=== PATIENT | female | born 1955 | race Caucasian/White ===

== ENCOUNTER 2017-10-10 21:59 | Emergency (ER) | payer MEDICAID ==
[2017-10-13 18:23] VITALS: BMI 33.5
== END 2017-10-10 23:50 | disposition home or self-care (01) ==
LOC: D.ER 21:59
DX: J20.9 Acute bronchitis, unspecified (principal); F17.200 Nicotine dependence, unspecified, uncomplicated

== ENCOUNTER 2017-10-11 08:28 | Inpatient (IN) | payer MEDICAID ==
[~2017-10-11] VITALS: Ht 172.7 cm; Wt 103.4 kg
--- NOTE | ~2017-10-11 | EC ---
PATIENT:NESS ROJO DATE OF SERVICE: 10/11/17 SEX: F MEDICAL RECORD: [id number] DATE OF : 53 LOCATION:[facility] AGE OF PATIENT: 62 ADMISSION DATE: 10/11/17 REFERRING PHYSICIAN: INTERPRETING PHYSICIAN: OLGA WEBSTER MD ECHOCARDIOGRAM REPORT ECHO CHARGES 4 ECHO COMPLETE Date: 10/13 CLINICAL DIAGNOSIS: EVALUATE FUNCTION ECHOCARDIOGRAPHIC MEASUREMENTS (adult normal given) AC root (d.<3.7cm) 3.2 cm LV Septum d (<1.2 cm> 1.4 cm Valve Excursion 1.5 cm LV Septum (systole) 1.9 cm Left Atria (s.<4.0cm> 3.5 cm LVPW d(<1.2cm) 1.1 cm RV (d.<2.3cm) 2.4 cm LVPW (sytole) 2.0 cm LV diastole(<5.6CM) 4.9 cm MV E-F(>70mm/sec) cm LV systole 2.6 cm LVOT Diameter 1.9 cm MV exc.(>10mm) cm Est.ejection fraction (50-75%) % DOPPLER: LVIT cm/sec A 79.0 cm/sec E 108 cm/sec LA cm/sec RVSP 41.4 mmHg LVOT 163 cm/sec AOP1/2T m/s Asc. Ao 218 cm/sec RVOT 104 cm/sec RA cm/sec PA 143 cm/sec AV Gradient Peak 19.0 mmHg AV Mean 9.0 mmHg AV Area 1.6 cm MV Gradient Peak 7.2 mmHg MV Mean 3.2 mmHg MV Area cm COMMENTS: Pin Drafter Operator: 1 KINSEY DUPREEOE Rn Pacu: 2 Dr. Fulton TAPE# PACS Pericardial Effusion N DATE OF SERVICE: FINDINGS: 1. Left ventricular chamber size is within normal limits. Left ventricular systolic function is normal. Overall ejection fraction is estimated at 65%. 2. Left atrium, right atrium, and right ventricular chamber sizes are within normal limit. 3. Valvular structures have normal structure and motion. 4. Doppler interrogation reveals mild mitral regurgitation. No other valvular insufficiency or stenosis. Pulmonary systolic pressure is estimated at 41 mmHg. ECHOCARDIOGRAM REPORT [id number] NESS ROJO 5. No evidence of pericardial effusion or left ventricular thrombus. TRANSINT:[id number] Voice Confirmation ID: [id number] DOCUMENT ID: [id number] OLGA WEBSTER MD at 1056 CC: [id number] DICTATION DATE: 10/13/17 1621 ECHO TECHNOLOGIST: 10/14/17 0127 DIS IN 10/15/17 [id number] [place] [address]
[2017-10-11 09:10] LABS: BASOPHILS 0.3 % (0-2); EOSINOPHILS 3.2 % (0-7); HEMATOCRIT 36.2 % (36.0-48.0); HEMOGLOBIN 11.9 g/dL (12-16); IMMATURE GRANULOCYTES 0.3 % (0-5); LYMPHOCYTES 5.6 % (15-50); MCH 27.8 pg (26.0-34.0); MCHC 32.9 g/dL (31.0-37.0); MCV 84.6 fL (80.0-100.0); MEAN PLATELET VOLUME 9.1 fL (7.4-10.4); MONOCYTES 5.8 % (2-11); NEUTROPHILS 84.8 % (40-80); PLATELET COUNT 224 10x3/uL (130-400); RBC 4.28 10x6/uL (4.00-5.40); RDW 13.3 % (11.5-14.5); WBC 7.3 10x3/uL (4.8-10.8)
[2017-10-11 09:26] LABS: ALBUMIN 3.9 g/dL (3.4-5.0); ANION GAP 16.8 mmol/L (8-16); BILIRUBIN - TOTAL 0.48 mg/dL (0.2-1.3); CARBON DIOXIDE 25.3 mmol/L (21.0-32.0); POTASSIUM - SERUM 4.1 mmol/L (3.5-5.1); PROTEIN - SERUM 7.7 g/dL (6.4-8.2)
[2017-10-11 12:33] VITALS: BP 140/73; BMI 33.5
[2017-10-11 20:00] VITALS: BP 138/71
[2017-10-12] VITALS: BP 115/61
[2017-10-12 04:00] VITALS: BP 136/70
[2017-10-12 04:25] LABS: BASOPHILS 0 % (0-2); EOSINOPHILS 0 % (0-7); HEMATOCRIT 32.9 % (36.0-48.0); HEMOGLOBIN 10.7 g/dL (12-16); IMMATURE GRANULOCYTES 0.2 % (0-5); LYMPHOCYTES 8.2 % (15-50); MCH 27.6 pg (26.0-34.0); MCHC 32.5 g/dL (31.0-37.0); MEAN PLATELET VOLUME 9.2 fL (7.4-10.4); MONOCYTES 4.2 % (2-11); NEUTROPHILS 87.4 % (40-80); PLATELET COUNT 201 10x3/uL (130-400); RBC 3.87 10x6/uL (4.00-5.40); RDW 13.6 % (11.5-14.5)
[2017-10-12 04:35] LABS: WBC 5.3 10x3/uL (4.8-10.8)
[2017-10-12 04:41] LABS: CALC OSMOLALITY 283 mosm/kg (275-300); CALCIUM 8.8 mg/dL (8.5-10.1); CARBON DIOXIDE 24.5 mmol/L (21.0-32.0); CHLORIDE - SERUM 104 mmol/L (98-107); CREATININE - SERUM 0.8 mg/dL (0.6-1.3); GLUCOSE 160 mg/dL (74-106); POTASSIUM - SERUM 3.6 mmol/L (3.5-5.1); SODIUM 141 mmol/L (136-145); UREA NITROGEN 13 mg/dL (7-18); eGFR NON AFRICAN AMERICAN 77 mL/min (90-120)
[2017-10-12 08:19] VITALS: BP 129/69
[2017-10-12 11:49] VITALS: BP 136/64
[2017-10-12 16:34] VITALS: BP 131/76
[2017-10-12 20:00] VITALS: BP 144/75
[2017-10-13 04:00] VITALS: BP 177/92
[2017-10-13 05:55] LABS: BASOPHILS 0 % (0-2); EOSINOPHILS 0 % (0-7); HEMOGLOBIN 10.6 g/dL (12-16); IMMATURE GRANULOCYTES 0.5 % (0-5); LYMPHOCYTES 9.7 % (15-50); MCH 27.4 pg (26.0-34.0); MCHC 32.1 g/dL (31.0-37.0); MCV 85.3 fL (80.0-100.0); MEAN PLATELET VOLUME 9.3 fL (7.4-10.4); MONOCYTES 6.7 % (2-11); NEUTROPHILS 83.1 % (40-80); PLATELET COUNT 205 10x3/uL (130-400); RBC 3.87 10x6/uL (4.00-5.40); RDW 13.9 % (11.5-14.5)
[2017-10-13 05:57] LABS: WBC 7.8 10x3/uL (4.8-10.8)
[2017-10-13 06:09] LABS: ALBUMIN 3.2 g/dL (3.4-5.0); ALKALINE PHOSPHATASE 51 U/L (46-116); ALT (SGPT) 17 U/L (10-68); CALCIUM 8.7 mg/dL (8.5-10.1); CHLORIDE - SERUM 105 mmol/L (98-107); CREATININE - SERUM 0.8 mg/dL (0.6-1.3); GLUCOSE 160 mg/dL (74-106); POTASSIUM - SERUM 3.9 mmol/L (3.5-5.1); PROTEIN - SERUM 6.6 g/dL (6.4-8.2); SODIUM 142 mmol/L (136-145); eGFR NON AFRICAN AMERICAN 77 mL/min (90-120)
[2017-10-13 06:17] LABS: CALC OSMOLALITY 287 mosm/kg (275-300); UREA NITROGEN 19 mg/dL (7-18)
[2017-10-13 08:06] VITALS: BP 157/87
[2017-10-13 12:00] VITALS: BP 162/96
[2017-10-13] MEDS ORDERED: ZPAK PO (12:50)
[2017-10-13] MEDS ORDERED: PREDNISONE20 MG PO (12:51)
[2017-10-13] MEDS ORDERED: ADVAIR 250/501 DISK INH (12:51)
[2017-10-13 13:45] LABS: % SATURATION 12 % (15-55); IRON 35 ug/dl (35-150); TOTAL IRON BIND CAPACITY 272 ug/dl (260-445); UNSAT IRON BIND CAPACITY 237 ug/dl (150-375)
[2017-10-13 15:10] VITALS: BP 151/86
[2017-10-13 18:23] VITALS: Ht 172.7 cm; Wt 103.4 kg
[2017-10-13 21:52] VITALS: BP 144/77
[2017-10-14] VITALS (7 sets, daily range): BP systolic 144–164; BP diastolic 72–93
[2017-10-14 06:11] LABS: BASOPHILS 0 % (0-2); EOSINOPHILS 0.2 % (0-7); HEMATOCRIT 33.8 % (36.0-48.0); HEMOGLOBIN 10.9 g/dL (12-16); IMMATURE GRANULOCYTES 0.5 % (0-5); LYMPHOCYTES 12.7 % (15-50); MCH 27.3 pg (26.0-34.0); MCHC 32.2 g/dL (31.0-37.0); MCV 84.7 fL (80.0-100.0); MEAN PLATELET VOLUME 9.1 fL (7.4-10.4); MONOCYTES 5.1 % (2-11); NEUTROPHILS 81.5 % (40-80); PLATELET COUNT 210 10x3/uL (130-400); RBC 3.99 10x6/uL (4.00-5.40); RDW 13.7 % (11.5-14.5); WBC 6.2 10x3/uL (4.8-10.8)
[2017-10-14 06:34] LABS: ALBUMIN 3.2 g/dL (3.4-5.0); ALKALINE PHOSPHATASE 49 U/L (46-116); CALC OSMOLALITY 286 mosm/kg (275-300); CALCIUM 8.9 mg/dL (8.5-10.1); CARBON DIOXIDE 26.9 mmol/L (21.0-32.0); CHLORIDE - SERUM 104 mmol/L (98-107); CREATININE - SERUM 0.8 mg/dL (0.6-1.3); GLUCOSE 148 mg/dL (74-106); POTASSIUM - SERUM 4.1 mmol/L (3.5-5.1); PROTEIN - SERUM 6.7 g/dL (6.4-8.2); SODIUM 141 mmol/L (136-145); UREA NITROGEN 22 mg/dL (7-18); eGFR NON AFRICAN AMERICAN 77 mL/min (90-120)
[2017-10-14 06:35] LABS: ALT (SGPT) 23 U/L (10-68)
[2017-10-15 04:00] VITALS: BP 159/99
[2017-10-15 07:56] LABS: BASOPHILS 0.1 % (0-2); EOSINOPHILS 0.1 % (0-7); HEMATOCRIT 38.3 % (36.0-48.0); HEMOGLOBIN 12.7 g/dL (12-16); IMMATURE GRANULOCYTES 1.1 % (0-5); LYMPHOCYTES 31.1 % (15-50); MCH 27.9 pg (26.0-34.0); MCHC 33.2 g/dL (31.0-37.0); MCV 84.2 fL (80.0-100.0); MEAN PLATELET VOLUME 8.8 fL (7.4-10.4); MONOCYTES 10.1 % (2-11); NEUTROPHILS 57.5 % (40-80); PLATELET COUNT 217 10x3/uL (130-400); RBC 4.55 10x6/uL (4.00-5.40); RDW 13.7 % (11.5-14.5)
[2017-10-15 08:08] LABS: ALBUMIN 3.8 g/dL (3.4-5.0); ALKALINE PHOSPHATASE 55 U/L (46-116); ALT (SGPT) 27 U/L (10-68); BILIRUBIN - TOTAL 0.44 mg/dL (0.2-1.3); CALC OSMOLALITY 280 mosm/kg (275-300); CALCIUM 9.1 mg/dL (8.5-10.1); CARBON DIOXIDE 26.6 mmol/L (21.0-32.0); CHLORIDE - SERUM 102 mmol/L (98-107); CREATININE - SERUM 0.7 mg/dL (0.6-1.3); GLUCOSE 101 mg/dL (74-106); POTASSIUM - SERUM 3.5 mmol/L (3.5-5.1); PROTEIN - SERUM 7.4 g/dL (6.4-8.2); SODIUM 140 mmol/L (136-145); UREA NITROGEN 17 mg/dL (7-18); eGFR NON AFRICAN AMERICAN 90 mL/min (90-120)
[2017-10-15 08:41] VITALS: BP 143/63
[2017-10-15 11:21] LABS: IMMUNOGLOBULIN A 312 mg/dL (87-352); IMMUNOGLOBULIN G 690 mg/dL (700-1600)
[2017-10-15 11:46] VITALS: BP 144/89
[2017-10-15 12:17] LABS: ANA REFLEX - DIRECT Negative (Negative)
[2017-10-15] MEDS ORDERED: BENZONATATE200 MG PO (12:57)
[2017-10-15] MEDS ORDERED: NORVASC2.5 MG PO (12:57)
[2017-10-15] MEDS ORDERED: CARAFATE1 G/10 ML PO (12:57)
[2017-10-15] MEDS ORDERED: COLACE100 MG PO (12:57)
[2017-10-15] MEDS ORDERED: PROMETHAZINE W473 M1 PO (12:57)
[2017-10-15] MEDS ORDERED: XANAX0.25 MG PO (12:57)
[2017-10-15] MEDS ORDERED: SINGULAIR10 MG PO (12:57)
[2017-10-15] MEDS ORDERED: PROTONIX40 MG PO (12:57)
[2017-10-16 16:16] LABS: ANCA - ANTIMYELOPEROXIDASE <9.0 U/mL (0.0-9.0); ANCA - ANTIPROTEINASE 3 <3.5 U/mL (0.0-3.5); ANCA - ATYPICAL <1:20 titer (Neg:<1:20); ANCA - CYTOPLASMIC <1:20 titer (Neg:<1:20); ANCA - PERINUCLEAR <1:20 titer (Neg:<1:20)
[2017-10-16 22:12] LABS: MYCOPLASMA PNEUMO IGG 422 U/mL (0-99)
[2017-10-20 03:06] LABS: IMMUNOGLOBULIN E 412 IU/mL (0-100)
== END 2017-10-15 14:17 | disposition home or self-care (01) | DRG 190 ==
LOC: D.ER 08:28 → D.EDHOLD 10:16 → D.MS 10:16
PROVIDERS: Family Medicine; Internal Medicine Gastroenterology; Internal Medicine Nephrology; Internal Medicine Pulmonary Disease
PROC: 0DD78ZX Extraction of Stomach, Pylorus, Via Natural or Artificial Opening Endoscopic, Diagnostic (ICD-10-PCS; principal; 2017-10-14 07:18)
DX: J44.0 Chronic obstructive pulmonary disease with (acute) lower respiratory infection (principal); K22.11 Ulcer of esophagus with bleeding; J98.11 Atelectasis; J44.1 Chronic obstructive pulmonary disease with (acute) exacerbation; J30.9 Allergic rhinitis, unspecified; E86.0 Dehydration; R73.9 Hyperglycemia, unspecified; J70.5 Respiratory conditions due to smoke inhalation; F41.9 Anxiety disorder, unspecified; I10 Essential (primary) hypertension; K21.9 Gastro-esophageal reflux disease without esophagitis; D64.9 Anemia, unspecified; R13.10 Dysphagia, unspecified; Z87.891 Personal history of nicotine dependence; K29.70 Gastritis, unspecified, without bleeding; K44.9 Diaphragmatic hernia without obstruction or gangrene

== ENCOUNTER → 2017-12-17 10:13 | Outpatient (CLI) | payer MEDICAID ==
[2017-10-13 18:23] VITALS: BMI 33.5
[~2017-12-17 10:13] MED LIST: ADVAIR 250/501 DISK INH; BENZONATATE200 MG PO; CARAFATE1 G/10 ML PO; COLACE100 MG PO; NORVASC2.5 MG PO; PREDNISONE20 MG PO; PROMETHAZINE W473 M1 PO; PROTONIX40 MG PO; SINGULAIR10 MG PO; XANAX0.25 MG PO; ZPAK PO
== END | disposition home or self-care (01) ==
LOC: D.RAD 12-12 08:00 → D.SP 10:13 → D.RAD 11:00 → D.SP 11:00
DX: M16.11 Unilateral primary osteoarthritis, right hip (principal); Z01.812 Encounter for preprocedural laboratory examination

== ENCOUNTER → 2017-12-24 19:19 | Outpatient (CLI) | payer MEDICAID ==
[2017-10-13 18:23] VITALS: BMI 33.5
== END | disposition home or self-care (01) ==
LOC: D.MAMMO 12-12 15:00
DX: Z12.31 Encounter for screening mammogram for malignant neoplasm of breast (principal)

== ENCOUNTER → 2017-12-29 11:06 | Outpatient (CLI) | payer MEDICAID ==
[2017-10-13 18:23] VITALS: BMI 33.5
== END | disposition home or self-care (01) ==
LOC: D.US 11:06
DX: R92.8 Other abnormal and inconclusive findings on diagnostic imaging of breast (principal)

== ENCOUNTER → 2018-05-26 15:48 | Outpatient (CLI) | payer MEDICAID ==
[2017-10-13 18:23] VITALS: BMI 33.5
== END | disposition home or self-care (01) ==
LOC: D.LABREF 15:48
DX: M17.12 Unilateral primary osteoarthritis, left knee (principal); Z11.8 Encounter for screening for other infectious and parasitic diseases

== ENCOUNTER 2018-09-30 07:38 | Day surgery (SDC) | payer MEDICAID ==
[2018-09-29 11:53] LABS: HEMATOCRIT 34.6 % (36.0-48.0); HEMOGLOBIN 11.2 g/dL (12-16); MCH 27.9 pg (26.0-34.0); MCHC 32.4 g/dL (31.0-37.0); MCV 86.1 fL (80.0-100.0); MEAN PLATELET VOLUME 8.9 fL (7.4-10.4); RBC 4.02 10x6/uL (4.00-5.40); RDW 13.7 % (11.5-14.5); WBC 5.1 10x3/uL (4.8-10.8)
[~2018-09-30] VITALS: Ht 170.2 cm; Wt 90.7 kg
--- NOTE | ~2018-09-30 | OP ---
PATIENT NAME: CHARLEE ROJO MEDICAL RECORD: [id number] :53 LOCATION:[facility] ADMISSION DATE: SURGEON: JEANIE PHILLIPS DPM DATE OF OPERATION: 09/30/2018 PREOPERATIVE DIAGNOSES: 1. Hallux abductovalgus, left foot. 2. Plantar plate rupture, left second metatarsophalangeal joint. 3. Hammertoe deformity, left second digit. POSTOPERATIVE DIAGNOSES: 1. Hallux abductovalgus, left foot. 2. Plantar plate rupture, left second metatarsophalangeal joint. 3. Hammertoe deformity, left second digit. PROCEDURE: 1. Poli bunionectomy, left foot. 2. Marvin osteotomy, left second metatarsal. 3. Plantar plate repair, left second MPJ. 4. PIPJ fusion, left second digit. ANESTHESIA: General with local infiltrate utilizing lidocaine and Marcaine plain, 20 cc total around the first and second ray of the left foot. HEMOSTASIS: Left thigh tourniquet at 350 mmHg. PREOPERATIVE DETAILS: The patient was taken to the OR and placed on the operative table in a supine position. This was followed by induction of general anesthesia and infiltration of local anesthetic. The left lower extremity was then prepped and draped in usual aseptic technique followed by exsanguination and inflation of tourniquet. PROCEDURE #1: Poli bunionectomy, left foot: A 15-blade was used to create a 4-cm linear incision over dorsal aspect of the first ray extending to the base of proximal phalanx of the hallux. The incision was deepened down through subcutaneous tissue being sure to avoid all vital structures. Dissection was carried down to the first MPJ where a medial L capsulotomy was performed and medial capsular flap was reflected and the head of the first metatarsal was delivered. A sagittal saw was used to resect the medial eminence. Attention was directed to the first interspace where a lateral release was performed. Attention was then directed to the medial aspect of the head of the first metatarsal where a sagittal saw was used to create a V osteotomy through and through. The capital fragment was translocated laterally and fixated with a 0.062 inch K-wire. The pin was cut. The medial redundant shelf was resected with sagittal saw. The wound was flushed. The capsule was repaired with 2-0 Vicryl, the subcutaneous tissue with 4-0 Rapide and the skin was closed with 4-0 Rapide in a subcuticular technique followed by Dahlia. PROCEDURE #2: Marvin osteotomy, left second metatarsal. Incision was made over this dorsal aspect of the left second metatarsal extending to the PIPJ of the second digit. The incision was deepened down through subcutaneous tissue to the extensor longus tendon, which was transected in a Z fashion and reflected. A linear capsulotomy was made over the second MPJ and the second metatarsal head was delivered. A sagittal saw was used to make a dorsal distal to plantar proximal cut. The capital fragment was translocated proximally and temporarily OPERATIVE REPORT [id number] CHARLEE ROJO fixated with a K-wire. A second K-wire was placed in the middle of the proximal phalanx of the second digit and a wire retractor was placed over the wires and the joint was distracted. Inspection showed that there was a plantar lateral tear of the plantar plate. A 15 blade was used to complete the tear. Scorpion passer was used to pass FiberWire through the plantar plate avoiding the flexor longus tendon. Two small drill holes were made in the base of proximal phalanx and the FiberWire was passed up through the small drill holes. At this time, the Marvin osteotomy was fixated with 2 pop-off screws. The plantar plate repair was then finished with holding the second digit in a slightly plantarflexed and lateral position with surgeon's knots being tied. This finished the Marvin osteotomy as well as the plantar plate repair, which was the second and third procedure. PROCEDURE #4: PIPJ fusion, left second digit. Utilizing the incision as described in procedures #2 and #3, the head of the proximal phalanx of the second digit and base of the middle phalanx were delivered. A sagittal saw was used to resect both surfaces. The bones were then prepped for the hammergraft bone graft across the fusion site. Excellent rigid fixation was noted after the hammer graft was placed in the deficit noting excellent coaptation of the fusion sites. Wound was flushed. The capsule of the second MPJ was then repaired with 2-0 Vicryl, the extensor longus tendon was repaired with 4-0 Rapide, the subcutaneous tissue was reapproximated with 4-0 Rapide and the skin was closed with 4-0 Rapide in a subcuticular technique followed by Dermabond. Adaptic, 4 x 4 and Conform were used to dress both wounds followed by a modified Cohen compression dressing. Tourniquet was deflated. POSTOPERATIVE DETAILS: The patient tolerated the procedures well and left the OR with vital signs stable and vascular status at preoperative levels. The patient was transported to recovery per anesthesia in stable condition. TRANSINT:[id number] Voice Confirmation ID: [id number] DOCUMENT ID: [id number] JEANIE PHILLIPS DPM CC: [id number] DICTATION DATE: 09/30/18 1041 GOLF STARTER AND RANGER: 09/30/18 1309 REG [facility] [address] [id number]
[2018-09-30 08:26] VITALS: BP 108/70; Ht 170.2 cm; Wt 90.7 kg
== END 2018-09-30 13:45 | disposition home or self-care (01) ==
LOC: D.OPS 07:38 → D.PAN 10:00 → D.OPS 13:45
PROVIDERS: Anesthesiology; ATTEND Podiatrist
DX: M20.12 Hallux valgus (acquired), left foot (principal); S93.612A Sprain of tarsal ligament of left foot, initial encounter; M20.42 Other hammer toe(s) (acquired), left foot; X58.XXXA Exposure to other specified factors, initial encounter; Z01.812 Encounter for preprocedural laboratory examination

== ENCOUNTER 2020-09-06 16:48 | Inpatient (IN) | payer MEDICARE, MEDICAID ==
[~2020-09-06] VITALS: Ht 170.2 cm; Wt 106.4 kg
[2020-09-06 17:58] LABS: BASOPHILS 0.3 % (0-2); EOSINOPHILS 1.8 % (0-7); HEMATOCRIT 20.2 % (36.0-48.0); IMMATURE GRANULOCYTES 0.3 % (0-5); LYMPHOCYTE ABS# 1.42 10x3/uL (1.18-3.74); LYMPHOCYTES 16.2 % (15-50); MCHC 27.2 g/dL (31.0-37.0); MCV 71.4 fL (80.0-100.0); MEAN PLATELET VOLUME 8.1 fL (7.4-10.4); MONOCYTES 7.2 % (2-11); NEUTROPHIL ABS# 6.49 10x3/uL (1.56-6.13); NEUTROPHILS 74.2 % (40-80); RBC 2.83 10x6/uL (4.00-5.40); RDW 16.5 % (11.5-14.5); WBC 8.8 10x3/uL (4.8-10.8)
[2020-09-06 18:04] LABS: APTT 23.6 SECONDS (22.8-39.4); HEMOGLOBIN 5.5 g/dL (12-16); INR 1.01 (0.85-1.17); MCH 19.4 pg (26.0-34.0); PLATELET COUNT 471 10x3/uL (130-400); PROTIME 12.3 SECONDS (11.6-15.0)
[2020-09-06 18:15] LABS: ALBUMIN 3.9 g/dL (3.4-5.0); ANION GAP 12.6 mmol/L (8-16); BILIRUBIN - TOTAL 0.14 mg/dL (0.2-1.3); CALCIUM 9.6 mg/dL (8.5-10.1); CARBON DIOXIDE 26.6 mmol/L (21.0-32.0); CREATININE - SERUM 0.9 mg/dL (0.6-1.3); POTASSIUM - SERUM 4.2 mmol/L (3.5-5.1); PROTEIN - SERUM 7.7 g/dL (6.4-8.2)
[2020-09-06 20:00] VITALS: BP 144/73
--- NOTE | 2020-09-06 20:46 | NUR ---
PT RESTING IN BED AT THIS TIME. NO PAIN NOR DISTRESS NOTED. NURSE HAS JUST INITATED 1ST UNIT OF BLOOD AT 2043. VS: BP 130/63, R 18, P 98, T 98.7. WILL CONTINUE POC.
[2020-09-07 04:00] VITALS: BP 125/66
[2020-09-07 06:43] LABS: % SATURATION 94 % (15-55); HEMATOCRIT 22.6 % (36.0-48.0); IRON 412 ug/dl (35-150); TOTAL IRON BIND CAPACITY 435 ug/dl (260-445); UNSAT IRON BIND CAPACITY 23 ug/dl (150-375)
[2020-09-07 07:26] LABS: THYROID STIMULATING HORMONE 1.53 uIU/mL (0.36-3.74)
--- NOTE | 2020-09-07 07:50 | NUR ---
IN BED SLEEPING. AROUSES TO VOICE. DENIES NEEDS AT THIS TIME. BED LOW POSITION, CALL LIGHT IN REACH. FREE FROM SIGNS OF DISTRESS. WILL CONTINUE TO MONITOR.
[2020-09-07 07:51] VITALS: BP 145/70
[2020-09-07 08:21] LABS: HEMOGLOBIN 6.6 g/dL (12-16)
[2020-09-07 08:55] LABS: BASOPHILS 0.4 % (0-2); EOSINOPHILS 4.3 % (0-7); IMMATURE GRANULOCYTES 0.4 % (0-5); LYMPHOCYTE ABS# 1.45 10x3/uL (1.18-3.74); MCH 21.6 pg (26.0-34.0); MCHC 29.6 g/dL (31.0-37.0); MCV 73.1 fL (80.0-100.0); MEAN PLATELET VOLUME 8.3 fL (7.4-10.4); MONOCYTES 10.3 % (2-11); NEUTROPHIL ABS# 2.64 10x3/uL (1.56-6.13); NEUTROPHILS 54.6 % (40-80); RBC 3.05 10x6/uL (4.00-5.40); RDW 17.8 % (11.5-14.5)
[2020-09-07 09:02] LABS: PLATELET COUNT 369 10x3/uL (130-400); WBC 4.8 10x3/uL (4.8-10.8)
[2020-09-07 09:03] LABS: ALBUMIN 3.4 g/dL (3.4-5.0); ALKALINE PHOSPHATASE 75 U/L (30-120); ALT (SGPT) 22 U/L (10-68); BILIRUBIN - TOTAL 0.45 mg/dL (0.2-1.3); CALC OSMOLALITY 276 mosm/kg (275-300); CALCIUM 8.8 mg/dL (8.5-10.1); CARBON DIOXIDE 24.5 mmol/L (21.0-32.0); CHLORIDE - SERUM 103 mmol/L (98-107); CREATININE - SERUM 0.7 mg/dL (0.6-1.3); GLUCOSE 90 mg/dL (74-106); POTASSIUM - SERUM 4.2 mmol/L (3.5-5.1); PROTEIN - SERUM 6.2 g/dL (6.4-8.2); SODIUM 138 mmol/L (136-145); UREA NITROGEN 16 mg/dL (7-18); eGFR NON AFRICAN AMERICAN 89 mL/min (90-120)
--- NOTE | 2020-09-07 10:15 | NUR ---
BLOOD CONSENT ON CHART. BLOOD STARTED AT THIS TIME. NURSE IN ROOM FOR THE 15 MINUTES. NO SIGNS OF ISSUES. WILL CONTINUE TO MONITOR.
[2020-09-07 10:24] VITALS: BP 115/64; Ht 170.2 cm; Wt 106.4 kg
[2020-09-07 11:05] VITALS: BP 123/63
[2020-09-07 11:13] LABS: BILIRUBIN NEGATIVE (NEGATIVE); KETONE NEGATIVE (NEGATIVE); NITRITE NEGATIVE (NEGATIVE); UROBILINOGEN NORMAL mg/dL (< 2)
--- NOTE | 2020-09-07 12:00 | NUR ---
IV WENT BAD DURING BLOOD TRANSFUSION. SWITCHED TO IV IN LEFT UPPER ARM. PATIENT TOLLERATED WELL. WILL CONTINUE TO MONITOR.
--- NOTE | 2020-09-07 14:45 | NUR ---
SECOND BAG OF BLOOD STARTED. VITAL SIGNS STABLE. WILL CONTINUE TO MONITOR.
--- NOTE | 2020-09-07 16:53 | NUR ---
MAINTENCE IN ROOM FIXING AIR CONDITIONING. PATIENT IN BED. DENIES NEEDS AT THIS TIME. BED LOW POSITION, CALL LIGHT IN REACH. WILL CONTINUE TO MONITOR.
[2020-09-07 20:00] VITALS: BP 131/66
--- NOTE | 2020-09-07 20:00 | NUR ---
PT SITTING UP IN BED WITH FRIEND AT BEDSIDE. DENIES NEEDS AT THIS TIME. CL IN REACH
[2020-09-08] VITALS (10 sets, daily range): BP systolic 109–154; BP diastolic 44–86
[2020-09-08 00:54] LABS: HEMATOCRIT 28.3 % (36.0-48.0); HEMOGLOBIN 8.8 g/dL (12-16)
[2020-09-08 07:00] LABS: BASOPHILS 0.4 % (0-2); EOSINOPHILS 2.9 % (0-7); HEMATOCRIT 29.6 % (36.0-48.0); HEMOGLOBIN 9.1 g/dL (12-16); IMMATURE GRANULOCYTES 0.7 % (0-5); LYMPHOCYTE ABS# 1.37 10x3/uL (1.18-3.74); LYMPHOCYTES 19.7 % (15-50); MCH 23.4 pg (26.0-34.0); MCHC 30.7 g/dL (31.0-37.0); MEAN PLATELET VOLUME 8.5 fL (7.4-10.4); MONOCYTES 7.9 % (2-11); NEUTROPHIL ABS# 4.77 10x3/uL (1.56-6.13); NEUTROPHILS 68.4 % (40-80); PLATELET COUNT 327 10x3/uL (130-400); RDW 18.1 % (11.5-14.5)
[2020-09-08 07:04] LABS: MCV 76.1 fL (80.0-100.0); RBC 3.89 10x6/uL (4.00-5.40)
--- NOTE | 2020-09-08 07:20 | NUR ---
RECIEVED BEDSIDE REPORT. DENIES NEEDS AT THIS TIME. BED LOW POSITION, CALL LIGHT IN REACH. FREE FROM SIGNS OF DISTRESS. WILL CONTINUE TO MONITOR.
[2020-09-08 07:29] LABS: CALC OSMOLALITY 276 mosm/kg (275-300); CALCIUM 8.8 mg/dL (8.5-10.1); CHLORIDE - SERUM 106 mmol/L (98-107); CREATININE - SERUM 0.8 mg/dL (0.6-1.3); GLUCOSE 99 mg/dL (74-106); MAGNESIUM - SERUM 2.3 mg/dL (1.8-2.4); PHOSPHOROUS 4.5 mg/dL (2.5-4.9); POTASSIUM - SERUM 4.4 mmol/L (3.5-5.1); SODIUM 139 mmol/L (136-145); UREA NITROGEN 9 mg/dL (7-18); eGFR NON AFRICAN AMERICAN 76 mL/min (90-120)
--- NOTE | 2020-09-08 07:37 | NUR ---
IV IN LEFT UPPER ARM WENT BAD. REMOVED, CATH TIP INTACT. NEW IV PLACED IN RIGHT FOREARM, 20 GUAGE.
--- NOTE | 2020-09-08 16:31 | NUR ---
LEFT UNIT VIA BED TO PROCEDURE.
[2020-09-09 01:26] VITALS: BP 139/69
[2020-09-09 05:34] LABS: BASOPHILS 0.4 % (0-2); EOSINOPHILS 3.9 % (0-7); HEMATOCRIT 28.4 % (36.0-48.0); HEMOGLOBIN 8.5 g/dL (12-16); IMMATURE GRANULOCYTES 0.5 % (0-5); LYMPHOCYTE ABS# 1.18 10x3/uL (1.18-3.74); LYMPHOCYTES 20.9 % (15-50); MCH 23.4 pg (26.0-34.0); MCHC 29.9 g/dL (31.0-37.0); MEAN PLATELET VOLUME 8.6 fL (7.4-10.4); MONOCYTES 8.8 % (2-11); NEUTROPHILS 65.5 % (40-80); PLATELET COUNT 310 10x3/uL (130-400); RBC 3.63 10x6/uL (4.00-5.40); RDW 18.8 % (11.5-14.5); WBC 5.7 10x3/uL (4.8-10.8)
[2020-09-09 05:40] LABS: MCV 78.2 fL (80.0-100.0)
[2020-09-09 05:55] LABS: CALC OSMOLALITY 278 mosm/kg (275-300); CALCIUM 8.2 mg/dL (8.5-10.1); CARBON DIOXIDE 26.7 mmol/L (21.0-32.0); CHLORIDE - SERUM 104 mmol/L (98-107); CREATININE - SERUM 0.8 mg/dL (0.6-1.3); GLUCOSE 133 mg/dL (74-106); MAGNESIUM - SERUM 2.1 mg/dL (1.8-2.4); PHOSPHOROUS 4.4 mg/dL (2.5-4.9); SODIUM 139 mmol/L (136-145); UREA NITROGEN 9 mg/dL (7-18); eGFR NON AFRICAN AMERICAN 76 mL/min (90-120)
[2020-09-09 05:56] LABS: POTASSIUM - SERUM 3.7 mmol/L (3.5-5.1)
[2020-09-09 06:26] VITALS: BP 128/61
--- NOTE | 2020-09-09 08:00 | NUR ---
PATIENT IN BED WITH IV INTACT. NO COMPLAINTS OR SIGNS OF DISTRESS. CALL LIGHT WITHIN REACH.
[2020-09-09 08:26] VITALS: BP 152/82
[2020-09-09] MEDS ORDERED: PROTONIX40 MG PO (11:40)
[2020-09-09] MEDS ORDERED: HEMOCYTE PLUS C1 CAP PO (11:40)
--- NOTE | 2020-09-09 13:18 | NUR ---
PATIENT IV REMOVED WITH CATH TIP INTACT. GOING TO BE DC'D. CALL LIGHT WITHIN REACH.
--- NOTE | 2020-09-09 13:18 | MORECARE ---
CASE MANAGEMENT DISCHARGE SUMMARY PATIENT: CHARLEE ROJO UNIT: [id number] ADM DATE: 09/06/20 AGE: 65 : 54 SEX: F ROOM/BED: D.2213 AUTHOR: MEREDITH ALBERTS PHYSICIAN: REFERRING PHYSICIAN: CHANELL ESCOBAR MD DATE OF SERVICE: 09/09/20 Discharge Plan Patient Name: CHARLEE ROJO Facility: [facility]:[place] : 1955 Planned Disposition: Home Anticipated Discharge Date: 09/09/20 Discharge Date: Expected LOS: 3 Initial Reviewer: [email or web address] Initial Review Date: 09/06/2020 Generated: 09/09/20 2:17 pm Comments DCP- Discharge Planning Updated by VIDA: Donato Knox on 09/09/20 12:[address] CM met with patient to complete DC plan and to evaluate needs. Patient lives independently with a roommate. At discharge, the patient plans to return home and feels this is a safe discharge. CM discussed availability of home health, rehab services, and medical equipment. Patient declined HHS, SNF, IPR, and DME. Patient voiced no other needs at this time and is satisfied with DC plan. DC IMM delivered, explained, signed by the patient, and placed in chart. Signed form also left with the patient. CM will continue to follow and will assist as needed with dc plans/needs. Coverage Notice Reviewer: [id number] - Donato Knox Notice Issued Date-Time: 09/09/2020 12:22 Notice Type: IM Discharge Notice Notice Delivered To: Patient Relationship to Patient: Self Contracts Specialist Name: Delivery Method: HAND - Hand Delivered Trice Days: Prior Verbal Notification: Recipient Understood Notice: Yes Recipient Signature: Yes Med Rec Note Co-signed by Attending: Coverage Notice Comment: DC IMM delivered, explained, signed by the patient, and placed in chart. Patient Name: CHARLEE ROJO Page [phone] at 1318 All edits/amendments must be made on the electronic document DICTATION DATE: 09/09/20 1317 ELECTRICAL APPLIANCE SERVICER: VICK 09/09/20 1317 RPT#: [id number] DC DATE: STATUS: ADM IN [facility] [address] [place] [address] END OF REPORT
--- NOTE | 2020-09-09 13:24 | MORECARE ---
CASE MANAGEMENT DISCHARGE SUMMARY PATIENT: CHARLEE ROJO UNIT: [id number] ADM DATE: 09/06/20 AGE: 65 : 54 SEX: F ROOM/BED: D.2213 AUTHOR: ARISTEO,DOC PHYSICIAN: REFERRING PHYSICIAN: CHANELL ESCOBAR MD DATE OF SERVICE: 09/09/20 Discharge Plan Patient Name: CHARLEE ROJO Facility: [facility]:[place] : 1955 Planned Disposition: Home Anticipated Discharge Date: 09/09/20 Discharge Date: Expected LOS: 3 Initial Reviewer: [email or web address] Initial Review Date: 09/06/2020 Generated: 09/09/20 2:23 pm Comments DCP- Discharge Planning Updated by [email or web address]: Donato Knox on 09/09/20 12:[address] CM met with patient to complete DC plan and to evaluate needs. Patient lives independently with a roommate. At discharge, the patient plans to return home and feels this is a safe discharge. CM discussed availability of home health, rehab services, and medical equipment. Patient declined HHS, SNF, IPR, and DME. Patient voiced no other needs at this time and is satisfied with DC plan. DC IMM delivered, explained, signed by the patient, and placed in chart. Signed form also left with the patient. CM will continue to follow and will assist as needed with dc plans/needs. DCPIA - Discharge Planning Initial Assessment Updated by [id number]: Donato Knox on 09/09/20 1:18 pm * Is the patient Alert and Oriented? Yes * How many steps to enter\exit or inside your home? 2/0 * PCP LUZ * Pharmacy [facility] * Preadmission Environment Home with Family * ADLs Independent * Equipment Walker * Other Equipment N/A * List name and contact numbers for known caregivers / representatives who currently or will assist patient after discharge: BRONSON GOLDMAN (DTR) [phone] * Verbal permission to speak to the caregivers and representatives has been obtained from the patient. Yes * Community resources currently utilized None * Please name any agencies selected above. N/A * Additional services required to return to the preadmission environment? No * Can the patient safely return to the preadmission environment? Yes * Has this patient been hospitalized within the prior 30 days at any hospital? No Coverage Notice Reviewer: [id number] Attila ArevaloDonatoghislaine Pagenes Notice Issued Date-Time: 09/09/2020 12:22 Notice Type: IM Discharge Notice Notice Delivered To: Patient Relationship to Patient: Self Admissions Recruiter Name: Delivery Method: HAND - Hand Delivered Trice Days: Prior Verbal Notification: Recipient Understood Notice: Yes Recipient Signature: Yes Med Rec Note Co-signed by Attending: Coverage Notice Comment: DC IMM delivered, explained, signed by the patient, and placed in chart. Last DP export: 09/09/20 12:18 pm Patient Name: CHARLEE ROJO Page [phone] at 1324 All edits/amendments must be made on the electronic document DICTATION DATE: 09/09/20 1324 TELEPHONE QUOTATION CLERK: VICK 09/09/20 1324 RPT#: [id number] DC DATE: STATUS: ADM IN [facility] [address] [place] [address] END OF REPORT
[2020-09-09 13:25] VITALS: BP 148/80
--- NOTE | 2020-09-09 13:30 | NUR ---
PATIENT RECIEVED DC INSTRUCTIONS. VERBALIZED UNDERSTANDING. EXPLAINED THAT MEDS WERE SENT TO [facility] PER REQUEST. VERBALIZED UNDERSTANDING. PATIENT GETTING DRESSED AND WILL CALL WHEN READY TO LEAVE.
--- NOTE | 2020-09-09 13:55 | NUR ---
PATIENT ESCORTED OUT OF HOSPITAL VIA WC WITH PERSONAL BELONGINGS TO PRIVATE VEHICLE BY RN.
--- NOTE | 2020-09-11 07:51 | MORECARE ---
CASE MANAGEMENT DISCHARGE SUMMARY PATIENT: CHARLEE ROJO UNIT: [id number] ADM DATE: 09/06/20 AGE: 65 : 54 SEX: F ROOM/BED: D.2213 AUTHOR: ARISTEO,DOC PHYSICIAN: REFERRING PHYSICIAN: CHANELL ESCOBAR MD DATE OF SERVICE: 09/11/20 Discharge Plan Patient Name: CHARLEE ROJO Facility: [facility]:[place] : 1955 Planned Disposition: Home Anticipated Discharge Date: 09/09/20 Discharge Date: 09/09/2020 Expected LOS: 3 Initial Reviewer: [id number] Initial Review Date: 09/06/2020 Generated: 09/11/20 8:50 am Comments DCP- Discharge Planning Updated by [email or web address]: Donato Knox on 09/09/20 12:[address] CM met with patient to complete DC plan and to evaluate needs. Patient lives independently with a roommate. At discharge, the patient plans to return home and feels this is a safe discharge. CM discussed availability of home health, rehab services, and medical equipment. Patient declined HHS, SNF, IPR, and DME. Patient voiced no other needs at this time and is satisfied with DC plan. DC IMM delivered, explained, signed by the patient, and placed in chart. Signed form also left with the patient. CM will continue to follow and will assist as needed with dc plans/needs. DCPIA - Discharge Planning Initial Assessment Updated by [id number]: Donato Knox on 09/09/20 1:18 pm * Is the patient Alert and Oriented? Yes * How many steps to enter\exit or inside your home? 2/0 * PCP LUZ * Pharmacy [facility] * Preadmission Environment Home with Family * ADLs Independent * Equipment Walker * Other Equipment N/A * List name and contact numbers for known caregivers / representatives who currently or will assist patient after discharge: BRONSON GOLDMAN (DTR) [phone] * Verbal permission to speak to the caregivers and representatives has been obtained from the patient. Yes * Community resources currently utilized None * Please name any agencies selected above. N/A * Additional services required to return to the preadmission environment? No * Can the patient safely return to the preadmission environment? Yes * Has this patient been hospitalized within the prior 30 days at any hospital? No Coverage Notice Reviewer: [email or web address] Attila ArevaloDonatoghislaine Pagenes Notice Issued Date-Time: 09/09/2020 12:22 Notice Type: IM Discharge Notice Notice Delivered To: Patient Relationship to Patient: Self Wax Coating Machine Tender Name: Delivery Method: HAND - Hand Delivered Trice Days: Prior Verbal Notification: Recipient Understood Notice: Yes Recipient Signature: Yes Med Rec Note Co-signed by Attending: Coverage Notice Comment: DC IMM delivered, explained, signed by the patient, and placed in chart. Last DP export: 09/09/20 12:24 pm Patient Name: CHARLEE ROJO Page [phone] at 0751 All edits/amendments must be made on the electronic document DICTATION DATE: 09/11/20749 STEAMSHIP AGENT: VICK 09/11/20 0750 RPT#: [id number] DC DATE:09/09/20 STATUS: DIS IN [id number] [place] [address] END OF REPORT
== END 2020-09-09 13:55 | disposition home or self-care (01) | DRG 812 ==
LOC: D.MS 16:48
PROVIDERS: Emergency Medicine; Internal Medicine Gastroenterology; ADMIT Family Medicine; ATTEND Family Medicine
PROC: 0DB78ZX Excision of Stomach, Pylorus, Via Natural or Artificial Opening Endoscopic, Diagnostic (ICD-10-PCS; 2020-09-08)
PROC: 0DB98ZX Excision of Duodenum, Via Natural or Artificial Opening Endoscopic, Diagnostic (ICD-10-PCS; principal; 2020-09-08 14:18)
DX: D50.9 Iron deficiency anemia, unspecified (principal); F41.9 Anxiety disorder, unspecified; M19.90 Unspecified osteoarthritis, unspecified site; K21.9 Gastro-esophageal reflux disease without esophagitis; I10 Essential (primary) hypertension